=== PATIENT | female | born 1980 | race Caucasian/White ===

== ENCOUNTER 2018-11-18 11:30 | Emergency (ER) | payer OTHER ==
[2018-11-18] MEDS ORDERED: ACETAMINOPHEN EXTRA STRENGTH 500 MG TABLET ONE (11:48)
[2018-11-18] MEDS ORDERED: LIDOCAINE HCL 1% 20 ML VIAL ONE (11:56)
[2018-11-18] MEDS ORDERED: TETANUS/DIPHTHERIA TOXOID [ADULT] 0.5 ML VIAL IM ONE (11:56)
== END 2018-11-18 12:40 | disposition home or self-care (01) ==
LOC: EDH 11:30
DX: S62.636A Displaced fracture of distal phalanx of right little finger, initial encounter for closed fracture (principal); W23.0XXA Caught, crushed, jammed, or pinched between moving objects, initial encounter; Y93.89 Activity, other specified; Y92.810 Car as the place of occurrence of the external cause; Y99.8 Other external cause status; S60.051A Contusion of right little finger without damage to nail, initial encounter
CPT/HCPCS: 11740; 73140; 90471; 90714